=== PATIENT | male | born 1995 | race Caucasian/White ===

== ENCOUNTER 2019-09-24 10:20 | Emergency (ER) | payer SELFPAY ==
[~2019-09-24] VITALS: Ht 177.8 cm; Wt 72.6 kg
[2019-09-24] MEDS ORDERED: ADVIL200 M1 PO (10:35)
== END 2019-09-24 12:30 | disposition short-term general hospital (02) ==
LOC: ED 10:20
DX: S01.112A Laceration without foreign body of left eyelid and periocular area, initial encounter (principal); W22.8XXA Striking against or struck by other objects, initial encounter
CPT/HCPCS: 99284